=== PATIENT | male | born 1945 | race Caucasian/White ===

== ENCOUNTER → 2019-01-21 10:37 | Outpatient (CLI) | payer MEDICARE, SELFPAY ==
--- NOTE | 2019-01-21 | DI.RAD.S_ITS ---
PROCEDURE: XR SHOULDER RT MIN 2V INDICATIONS: RIGHT SHOULDER PAIN TECHNIQUE: 3 views of the shoulder were acquired. COMPARISON: None. FINDINGS: Bones: Midline sternotomy wires partially imaged on this exam. There is mild cortical irregularity of the distal right clavicle. There is moderate degenerative change of the right glenohumeral and acromioclavicular joints. Soft tissues: There is possible soft tissue calcifications which can be seen with calcific tendinitis located superior to the right humeral head. IMPRESSION: 1. Mild cortical irregularity of the distal right clavicle, which may be secondary to degenerative change or represent a nondisplaced fracture. Correlation with point tenderness recommended. 2. 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 Dictated by: Orlando Schrader M.D. on 01/21/2019 at 12:14 Approved by: Orlando Schrader M.D. on 01/21/2019 at 12:19
== END ==
PROVIDERS: PCP Family Medicine; Visit Provider Family Medicine
DX: M25.511 Pain in right shoulder (principal); M17.12 Unilateral primary osteoarthritis, left knee; M75.81 Other shoulder lesions, right shoulder
CPT/HCPCS: 73030